=== PATIENT | female | born 1945 | race Caucasian/White ===

== ENCOUNTER → 2016-09-19 | Outpatient (REF) | payer MEDICARE, BC ==
[~2016-09-19] MED LIST: /LANS30GR; /WARF25TA; ACET65TA; ALBU17IN INH; ALBU17IN2 NEB; ALBUTEROL INHL INH; ANOR1AER INH; BEPR1.5D2 OU; CLAR1TAB2 PO; CLAR5CHW; COLA100C PO; ELES0.05 OU; LANS15CA PO; LASI20TA PO; LORA10TA2 PO; LYSI1000 PO; MAGN200T3 PO; MAGN500C PO; MAGN500T5 PO; PERC5TAB8; PREV15CA10 PO; SPIR1CAP INH; SYMB80INH INH; THERGRAN OR; TYLE325T5 PO; VITA-130 PO; VITA100066 PO; ZOCO5TAB; [UNRECOGNIZED DRUG - OTHER] PO
[2016-09-19 18:03] LABS: ALBUMIN 3.8 GM/DL (3.2-5.2); ALBUMIN/GLOBULIN RATIO 1.27 (1.00-1.93); ALKALINE PHOSPHATASE 88 U/L (45-117); ALT/SGPT 20 U/L (12-78); ANION GAP 5 MEQ/L (8-16); AST/SGOT 13 U/L (15-37); BILIRUBIN,TOTAL 0.2 MG/DL (0.2-1.0); BLOOD UREA NITROGEN 18 MG/DL (7-18); CALCIUM LEVEL 9.1 MG/DL (8.8-10.2); CARBON DIOXIDE LEVEL 32 MEQ/L (21-32); CHLORIDE LEVEL 103 MEQ/L (98-107); CREATININE FOR GFR 0.55 MG/DL (0.55-1.02); GLOMERULAR FILTRATION RATE > 60.0 (>39); GLUCOSE, FASTING 84 MG/DL (83-110); MAGNESIUM LEVEL 1.9 MG/DL (1.8-2.4); POTASSIUM SERUM 4.9 MEQ/L (3.5-5.1); SODIUM LEVEL 140 MEQ/L (136-145); TOTAL PROTEIN 6.8 GM/DL (6.4-8.2)
== END ==
LOC: M SFHCCLAY 13:42
PROVIDERS: ATTEND Nurse Practitioner
DX: M19.041 Primary osteoarthritis, right hand (principal); L85.3 Xerosis cutis; J44.0 Chronic obstructive pulmonary disease with (acute) lower respiratory infection; Z86.79 Personal history of other diseases of the circulatory system; K21.9 Gastro-esophageal reflux disease without esophagitis; E78.5 Hyperlipidemia, unspecified; E83.40 Disorders of magnesium metabolism, unspecified; M47.9 Spondylosis, unspecified; Z79.899 Other long term (current) drug therapy
CPT/HCPCS: 80053; 83036; 83735; 83880; G0463

== ENCOUNTER → 2017-03-12 | Outpatient (CLI) | payer MEDICARE, BC ==
[~2017-03-12] MED LIST changes: -COLA100C PO; +COLA100C5 PO; +VITA500T PO
--- NOTE | 2017-03-12 14:43 | REP ---
LOW-DOSE LUNG CANCER SCREENING CHEST CT WITHOUT CONTRAST: HISTORY: COPD. COMPARISON: Chest CT, August 01, 2015. CT FINDINGS: There is bilateral lower lobe and right middle lobe basilar fibrosis. The lungs are somewhat hyperinflated as before. These findings are unchanged. There is a small bulla in the right middle lobe and another in the right upper lobe. There is an additional small bulla in the right lower lobe posteriorly. These are unchanged as well. There is a 5 mm noncalcified nodular density in the right middle lobe on image number 73 of 106, series 106 of today's study. This is visible in retrospect on August 01, 2015 in series 5 of that prior study on page 132. It is unchanged. Accordingly, it is felt to be benign. No other significant pulmonary nodule is seen. IMPRESSION: Negative screening lung CT study. Hyperinflation, consistent with COPD. Signed by Jg Weldon MD 03/12/2017 03:58 P
== END ==
LOC: M RAD 13:09
PROVIDERS: ATTEND Internal Medicine Pulmonary Disease
DX: Z12.2 Encounter for screening for malignant neoplasm of respiratory organs (principal); F17.210 Nicotine dependence, cigarettes, uncomplicated; J44.9 Chronic obstructive pulmonary disease, unspecified

== ENCOUNTER → 2017-05-13 | Outpatient (REF) | payer MEDICARE, BC | LOC: M SFHCCAPE 11:39 | PROVIDERS: ATTEND Physician Assistant | DX: J02.9 Acute pharyngitis, unspecified (principal) ==

== ENCOUNTER → 2017-06-16 | Outpatient (REF) | payer MEDICARE, BC ==
[2017-06-16 17:24] LABS: BASO # 0.1 10^3/uL (0.0-0.2); BASO % 0.5 % (0.0-1.0); EOS # 0.1 10^3/uL (0.0-0.50); EOS % 1.5 % (0.0-3.0); IMMATURE GRANULOCYTE % 0.5 % (0-0); MEAN CORPUSCULAR HEMOGLOBIN 30.2 pg (27.0-33.0); MEAN CORPUSCULAR HGB CONC 32.1 g/dl (32.0-36.5); MEAN CORPUSCULAR VOLUME 93.9 fl (80.0-96.0); MONO # 0.7 10^3/uL (0.0-0.8); MONO % 7.5 % (0.0-5.0); NEUTROPHILS # 6.6 10^3/uL (1.8-7.7); PLATELET COUNT, AUTOMATED 415 10^3/uL (150-450); RED CELL DISTRIBUTION WIDTH 12.9 % (11.5-14.5); WHITE BLOOD COUNT 9.6 10^3/uL (4.0-10.0)
[2017-06-16 18:51] LABS: ALBUMIN 3.7 GM/DL (3.2-5.2); ALBUMIN/GLOBULIN RATIO 1.16 (1.00-1.93); ALKALINE PHOSPHATASE 99 U/L (45-117); ALT/SGPT 38 U/L (12-78); ANION GAP 5 MEQ/L (8-16); AST/SGOT 22 U/L (15-37); BILIRUBIN,TOTAL 0.2 MG/DL (0.2-1.0); BLOOD UREA NITROGEN 16 MG/DL (7-18); CALCIUM LEVEL 9.3 MG/DL (8.8-10.2); CARBON DIOXIDE LEVEL 32 MEQ/L (21-32); CHLORIDE LEVEL 102 MEQ/L (98-107); CREATININE FOR GFR 0.56 MG/DL (0.55-1.02); GLOMERULAR FILTRATION RATE > 60.0 (>39); GLUCOSE, FASTING 88 MG/DL (83-110); POTASSIUM SERUM 4.6 MEQ/L (3.5-5.1); SODIUM LEVEL 139 MEQ/L (136-145); TOTAL PROTEIN 6.9 GM/DL (6.4-8.2)
== END ==
LOC: M SFHCCLAY 13:30
PROVIDERS: ATTEND Family Medicine
DX: I50.30 Unspecified diastolic (congestive) heart failure (principal); R73.01 Impaired fasting glucose; E83.40 Disorders of magnesium metabolism, unspecified; Z13.21 Encounter for screening for nutritional disorder
CPT/HCPCS: 80053; 82652; 83036; 83735; 85025; G0463

== ENCOUNTER → 2017-09-24 | Outpatient (REF) | payer MEDICARE, BC ==
[2017-09-24 17:16] LABS: APPEARANCE, URINE MANUAL CLOUDY (CLEAR); BILIRUBIN, URINE MANUAL NEGATIVE (NEGATIVE); BLOOD URINE MANUAL POSITIVE (NEGATIVE); COLOR, URINE MANUAL YELLOW (YELLOW); GLUCOSE, URINE (UA) MANUAL NEGATIVE (NEGATIVE); KETONE, URINE MANUAL NEGATIVE (NEGATIVE); LEUKOCYTE ESTERASE, URINE MAN POSITIVE (NEGATIVE); MICROSCOPIC INDICATED? MAN YES (NO); NITRITE, URINE MANUAL POSITIVE (NEGATIVE); PROTEIN, URINE MANUAL TRACE mg/dL (NEGATIVE); SPECIFIC GRAVITY,URINE MANUAL 1.015 (1.002-1.035); UROBILINOGEN, URINE MANUAL NORMAL (NORMAL)
[2017-09-24 17:18] LABS: BACTERIA, URINE MOD AMOUNT; HYALINE CAST, URINE NONE SEEN /lpf (0-1); SQUAMOUS EPITHELIAL CELL URINE SMALL AMOUNT /hpf (SMALL AMT); WBC, URINE 30-40 /hpf (0-3)
[2017-09-24 17:19] LABS: MICROSCOPIC EXAM UNSPUN
== END ==
LOC: M SFHCCAPE 10:50
DX: R35.0 Frequency of micturition (principal); R31.0 Gross hematuria
CPT/HCPCS: 81000

== ENCOUNTER → 2018-01-22 | Outpatient (REF) | payer MEDICARE, BC ==
[2018-01-23 11:42] LABS: ALBUMIN 3.9 GM/DL (3.2-5.2); ALBUMIN/GLOBULIN RATIO 1.26 (1.00-1.93); ALKALINE PHOSPHATASE 83 U/L (45-117); ALT/SGPT 21 U/L (12-78); ANION GAP 5 MEQ/L (8-16); AST/SGOT 12 U/L (7-37); BILIRUBIN,TOTAL 0.2 MG/DL (0.2-1.0); BLOOD UREA NITROGEN 14 MG/DL (7-18); CALCIUM LEVEL 9.3 MG/DL (8.8-10.2); CARBON DIOXIDE LEVEL 32 MEQ/L (21-32); CHLORIDE LEVEL 104 MEQ/L (98-107); CREATININE FOR GFR 0.59 MG/DL (0.55-1.30); GLOMERULAR FILTRATION RATE > 60.0 (>39); GLUCOSE, FASTING 88 MG/DL (70-100); POTASSIUM SERUM 4.4 MEQ/L (3.5-5.1); SODIUM LEVEL 141 MEQ/L (136-145)
== END ==
LOC: M SFHCCLAY 13:27
DX: I50.30 Unspecified diastolic (congestive) heart failure (principal)
CPT/HCPCS: 80053

== ENCOUNTER → 2018-03-05 | Outpatient (CLI) | payer MEDICARE, BC | LOC: M PAIN 15:00 | DX: G89.29 Other chronic pain (principal); M46.96 Unspecified inflammatory spondylopathy, lumbar region; M47.816 Spondylosis without myelopathy or radiculopathy, lumbar region; I50.32 Chronic diastolic (congestive) heart failure; E78.5 Hyperlipidemia, unspecified; M19.90 Unspecified osteoarthritis, unspecified site; K21.9 Gastro-esophageal reflux disease without esophagitis; J44.9 Chronic obstructive pulmonary disease, unspecified; M51.36 Other intervertebral disc degeneration, lumbar region; I11.0 Hypertensive heart disease with heart failure; E66.9 Obesity, unspecified; M47.896 Other spondylosis, lumbar region; L85.3 Xerosis cutis; F17.210 Nicotine dependence, cigarettes, uncomplicated; Z79.891 Long term (current) use of opiate analgesic; Z79.899 Other long term (current) drug therapy; Z99.81 Dependence on supplemental oxygen; Z96.641 Presence of right artificial hip joint; Z85.828 Personal history of other malignant neoplasm of skin; Z88.2 Allergy status to sulfonamides; Z88.8 Allergy status to other drugs, medicaments and biological substances; Z91.040 Latex allergy status; Z68.29 Body mass index [BMI] 29.0-29.9, adult | CPT/HCPCS: G0463 ==

== ENCOUNTER → 2018-03-09 | Outpatient (REF) | payer MEDICARE, BC ==
[2018-03-10 16:30] LABS: APPEARANCE, URINE CLOUDY (CLEAR); BACTERIA, URINE AUTO 1+ (NEGATIVE); BILIRUBIN, URINE AUTO NEGATIVE (NEGATIVE); BLOOD, URINE BLOOD 3+ (NEGATIVE); COLOR, URINE AMBER (YELLOW); GLUCOSE, URINE (UA) AUTO NEGATIVE (NEGATIVE); KETONE, URINE AUTO TRACE mg/dL (NEGATIVE); LEUKOCYTE ESTERASE, URINE AUTO 2+ (NEGATIVE); MUCUS, URINE SMALL (NEGATIVE); NITRITE, URINE AUTO NEGATIVE (NEGATIVE); PROTEIN, URINE AUTO 1+ mg/dL (NEGATIVE); RBC, URINE AUTO TNTC /HPF (0-3); SQUAMOUS EPITHELIAL CELL UR AU 14 /HPF (0-6); UROBILINOGEN, URINE AUTO 0.2 mg/dL (0.0-2.0); WBC, URINE AUTO TNTC /HPF (0-3)
== END ==
LOC: M SFHCCAPE 15:08
DX: R31.0 Gross hematuria (principal); R30.0 Dysuria
CPT/HCPCS: 81001

== ENCOUNTER → 2018-03-13 | Outpatient (CLI) | payer MEDICARE, BC | LOC: M RAD 13:40 | DX: Z87.891 Personal history of nicotine dependence (principal) | CPT/HCPCS: G0297 ==

== ENCOUNTER → 2018-04-08 | Outpatient (CLI) | payer MEDICARE, BC | LOC: M PAIN 13:15 | DX: M46.96 Unspecified inflammatory spondylopathy, lumbar region (principal); M47.816 Spondylosis without myelopathy or radiculopathy, lumbar region; I50.30 Unspecified diastolic (congestive) heart failure; I11.0 Hypertensive heart disease with heart failure; E78.5 Hyperlipidemia, unspecified; J44.9 Chronic obstructive pulmonary disease, unspecified; K21.9 Gastro-esophageal reflux disease without esophagitis; M16.11 Unilateral primary osteoarthritis, right hip; F17.200 Nicotine dependence, unspecified, uncomplicated; Z79.899 Other long term (current) drug therapy; Z88.2 Allergy status to sulfonamides; Z88.8 Allergy status to other drugs, medicaments and biological substances; Z91.040 Latex allergy status | CPT/HCPCS: G0463 ==

== ENCOUNTER → 2018-04-21 | Outpatient (REF) | payer MEDICARE, BC ==
[2018-04-21 18:26] LABS: AMORPHOUS SEDIMENT SMALL (NEGATIVE); APPEARANCE, URINE CLOUDY (CLEAR); BACTERIA, URINE AUTO NEGATIVE (NEGATIVE); BILIRUBIN, URINE AUTO NEGATIVE (NEGATIVE); BLOOD, URINE BLOOD 3+ (NEGATIVE); COLOR, URINE YELLOW (YELLOW); GLUCOSE, URINE (UA) AUTO NEGATIVE (NEGATIVE); KETONE, URINE AUTO NEGATIVE (NEGATIVE); LEUKOCYTE ESTERASE, URINE AUTO 3+ (NEGATIVE); MUCUS, URINE SMALL (NEGATIVE); NITRITE, URINE AUTO NEGATIVE (NEGATIVE); PROTEIN, URINE AUTO NEGATIVE (NEGATIVE); RBC, URINE AUTO TNTC /HPF (0-3); SQUAMOUS EPITHELIAL CELL UR AU 3 /HPF (0-6); TRANSITIONAL EPITHELIAL AUTO 1 /HPF; UROBILINOGEN, URINE AUTO 0.2 mg/dL (0.0-2.0); WBC, URINE AUTO TNTC /HPF (0-3)
== END ==
LOC: M SFHCCAPE 11:43
DX: R30.0 Dysuria (principal)
CPT/HCPCS: 81001

== ENCOUNTER → 2018-04-29 | Outpatient (REF) | payer MEDICARE, BC ==
[2018-04-29 19:18] LABS: APPEARANCE, URINE CLEAR (CLEAR); BACTERIA, URINE AUTO NEGATIVE (NEGATIVE); BILIRUBIN, URINE AUTO NEGATIVE (NEGATIVE); BLOOD, URINE BLOOD NEGATIVE (NEGATIVE); COLOR, URINE STRAW (YELLOW); GLUCOSE, URINE (UA) AUTO NEGATIVE (NEGATIVE); KETONE, URINE AUTO NEGATIVE (NEGATIVE); LEUKOCYTE ESTERASE, URINE AUTO NEGATIVE (NEGATIVE); NITRITE, URINE AUTO NEGATIVE (NEGATIVE); PROTEIN, URINE AUTO NEGATIVE (NEGATIVE); RBC, URINE AUTO 0 /HPF (0-3); SQUAMOUS EPITHELIAL CELL UR AU 0 /HPF (0-6); UROBILINOGEN, URINE AUTO 0.2 mg/dL (0.0-2.0); WBC, URINE AUTO 0 /HPF (0-3)
== END ==
LOC: M LABSMT 10:08
DX: N39.0 Urinary tract infection, site not specified (principal)
CPT/HCPCS: 81001

== ENCOUNTER → 2018-05-19 | Outpatient (REF) | payer MEDICARE, BC ==
[2018-05-19 19:04] LABS: APPEARANCE, URINE CLEAR (CLEAR); BACTERIA, URINE AUTO 1+ (NEGATIVE); BILIRUBIN, URINE AUTO NEGATIVE (NEGATIVE); BLOOD, URINE BLOOD NEGATIVE (NEGATIVE); COLOR, URINE STRAW (YELLOW); GLUCOSE, URINE (UA) AUTO NEGATIVE (NEGATIVE); KETONE, URINE AUTO NEGATIVE (NEGATIVE); LEUKOCYTE ESTERASE, URINE AUTO NEGATIVE (NEGATIVE); NITRITE, URINE AUTO NEGATIVE (NEGATIVE); PROTEIN, URINE AUTO NEGATIVE (NEGATIVE); RBC, URINE AUTO 0 /HPF (0-3); SPECIFIC GRAVITY URINE AUTO 1.008 (1.002-1.035); SQUAMOUS EPITHELIAL CELL UR AU 0 /HPF (0-6); UROBILINOGEN, URINE AUTO 0.2 mg/dL (0.0-2.0); WBC, URINE AUTO 1 /HPF (0-3)
== END ==
LOC: M LABSMT 10:43
DX: N39.0 Urinary tract infection, site not specified (principal)
CPT/HCPCS: 81001

== ENCOUNTER → 2018-06-15 | Outpatient (REF) | payer MEDICARE, BC ==
[2018-06-15 17:21] LABS: BASO # 0.1 10^3/uL (0.0-0.2); BASO % 0.8 % (0.0-1.0); EOS # 0.1 10^3/uL (0.0-0.50); EOS % 1.3 % (0.0-3.0); HEMATOCRIT 37.1 % (36.0-47.0); HEMOGLOBIN 11.7 g/dl (12.0-15.5); IMMATURE GRANULOCYTE % 0.2 % (0-3.0); LYMPH % 22.1 % (24.0-44.0); MEAN CORPUSCULAR HEMOGLOBIN 30.2 pg (27.0-33.0); MEAN CORPUSCULAR HGB CONC 31.5 g/dl (32.0-36.5); MEAN CORPUSCULAR VOLUME 95.6 fl (80.0-96.0); MONO # 0.6 10^3/uL (0.0-0.8); MONO % 6.9 % (0.0-5.0); NEUTROPHILS # 6.4 10^3/uL (1.8-7.7); NEUTROPHILS % 68.7 % (36.0-66.0); PLATELET COUNT, AUTOMATED 395 10^3/uL (150-450); RED BLOOD COUNT 3.88 10^6/uL (4.00-5.40); RED CELL DISTRIBUTION WIDTH 12.6 % (11.5-14.5); WHITE BLOOD COUNT 9.2 10^3/uL (4.0-10.0)
[2018-06-15 17:25] LABS: ALBUMIN 3.8 GM/DL (3.2-5.2); ALBUMIN/GLOBULIN RATIO 1.19 (1.00-1.93); ALKALINE PHOSPHATASE 92 U/L (45-117); ALT/SGPT 22 U/L (12-78); ANION GAP 4 MEQ/L (8-16); AST/SGOT 16 U/L (7-37); BILIRUBIN,TOTAL 0.2 MG/DL (0.2-1.0); BLOOD UREA NITROGEN 22 MG/DL (7-18); CALCIUM LEVEL 9.3 MG/DL (8.8-10.2); CARBON DIOXIDE LEVEL 32 MEQ/L (21-32); CHLORIDE LEVEL 103 MEQ/L (98-107); CREATININE FOR GFR 0.59 MG/DL (0.55-1.30); GLOMERULAR FILTRATION RATE > 60.0 (>39); GLUCOSE, FASTING 88 MG/DL (70-100); POTASSIUM SERUM 4.5 MEQ/L (3.5-5.1); SODIUM LEVEL 139 MEQ/L (136-145)
[2018-06-15 17:50] LABS: ESTIMATED AVERAGE GLUCOSE 114 MG/DL (60-110); HEMOGLOBIN A1c 5.6 %
== END ==
LOC: M SFHCCLAY 13:29
DX: R35.0 Frequency of micturition (principal); I50.30 Unspecified diastolic (congestive) heart failure; R73.01 Impaired fasting glucose; Z23 Encounter for immunization
CPT/HCPCS: 83735

== ENCOUNTER → 2018-08-10 | Outpatient (REF) | payer MEDICARE, BC ==
[~2018-08-10] MED LIST changes: -LASI20TA PO; +LASI20TA3 PO
== END ==
LOC: M SFHCPLAZ 17:25
PROVIDERS: ATTEND Dermatology
DX: C44.529 Squamous cell carcinoma of skin of other part of trunk (principal)

== ENCOUNTER → 2018-09-15 | Outpatient (REF) | payer MEDICARE, BC | LOC: M SFHCPLAZ 09:40 | PROVIDERS: ATTEND Dermatology | DX: D23.39 Other benign neoplasm of skin of other parts of face (principal); L57.0 Actinic keratosis; L28.1 Prurigo nodularis ==

== ENCOUNTER → 2018-12-15 | Outpatient (REF) | payer MEDICARE, BC ==
[~2018-12-15] MED LIST changes: -/WARF25TA; +ALBU83IN INH; +CLAR10CA3 PO; +COUM1TAB18; +RA M500C PO; +VENTAER INH
[2018-12-15 17:30] LABS: HEMOGLOBIN A1c 5.9 %
[2018-12-15 17:41] LABS: ALBUMIN 3.6 GM/DL (3.2-5.2); ALT/SGPT 21 U/L (12-78); BILIRUBIN,TOTAL 0.3 MG/DL (0.2-1.0); BLOOD UREA NITROGEN 19 MG/DL (7-18); CALCIUM LEVEL 8.7 MG/DL (8.8-10.2); CARBON DIOXIDE LEVEL 30 MEQ/L (21-32); CHLORIDE LEVEL 103 MEQ/L (98-107); CHOLESTEROL LEVEL 223 MG/DL (<200); CHOLESTEROL RISK RATIO 4.955 (<5); CREATININE FOR GFR 0.57 MG/DL (0.55-1.30); GLOMERULAR FILTRATION RATE > 60.0 (>39); GLUCOSE, FASTING 76 MG/DL (70-100); HDL CHOLESTEROL 45 MG/DL (>40); LDL CHOLESTEROL 130 MG/DL (<100); NON-HDL-C 178 MG/DL; POTASSIUM SERUM 4.2 MEQ/L (3.5-5.1); SODIUM LEVEL 141 MEQ/L (136-145); TOTAL PROTEIN 7.1 GM/DL (6.4-8.2); TRIGLYCERIDES LEVEL 238 MG/DL (<150)
[2018-12-15 17:56] LABS: BASO # 0.1 10^3/uL (0.0-0.2); BASO % 0.6 % (0.0-1.0); EOS # 0.1 10^3/uL (0.0-0.50); EOS % 1.7 % (0.0-3.0); HEMATOCRIT 36.6 % (36.0-47.0); HEMOGLOBIN 11.5 g/dl (12.0-15.5); LYMPH # 2.2 10^3/uL (1.5-4.5); LYMPH % 26.8 % (24.0-44.0); MEAN CORPUSCULAR HEMOGLOBIN 30.7 pg (27.0-33.0); MEAN CORPUSCULAR HGB CONC 31.4 g/dl (32.0-36.5); MEAN CORPUSCULAR VOLUME 97.6 fl (80.0-96.0); MONO # 0.7 10^3/uL (0.0-0.8); NEUTROPHILS # 5.2 10^3/uL (1.8-7.7); NEUTROPHILS % 62.7 % (36.0-66.0); PLATELET COUNT, AUTOMATED 370 10^3/uL (150-450); RED BLOOD COUNT 3.75 10^6/uL (4.00-5.40); WHITE BLOOD COUNT 8.3 10^3/uL (4.0-10.0)
== END ==
LOC: M SFHCCLAY 13:18
PROVIDERS: ATTEND Family Medicine
DX: E78.5 Hyperlipidemia, unspecified (principal); R73.01 Impaired fasting glucose

== ENCOUNTER → 2018-12-15 | Outpatient (CLI) | payer MEDICARE, BC ==
--- NOTE | 2018-12-15 17:54 | REP ---
REASON: COPD. COMPARISON: Multiple, the latest is 08/09/2015 a portable exam. The lung perez are hyperexpanded. There is evidence of scattered fibrotic change with basilar predominance status quo. The pleural angles are status quo. The pleural angles are sharp. The cardiomediastinal silhouette is unchanged. The heart is mildly enlarged. No acute patchy parenchymal opacities or pleural effusions have developed. Chronic changes seen involving the spine status quo. IMPRESSION:Chronic changes as described above without evidence of acute cardiopulmonary disease.
== END ==
LOC: M CLY 13:28
PROVIDERS: ATTEND Family Medicine
DX: I50.9 Heart failure, unspecified (principal); J44.0 Chronic obstructive pulmonary disease with (acute) lower respiratory infection; E78.5 Hyperlipidemia, unspecified; R73.01 Impaired fasting glucose

== ENCOUNTER 2018-12-24 06:01 | Inpatient (IN) | payer MEDICARE, BC ==
[~2018-12-24] VITALS: Ht 167.6 cm; Wt 85.2 kg
[2018-12-24] VITALS (8 sets, daily range): BP systolic 116–144; BP diastolic 58–64
[~2018-12-24 06:01] MED LIST changes: +LR 1,000 ML IV ONE
[2018-12-24] MEDS ORDERED: fentaNYL 250 MCG/5 ML INJECTION (J3010) As Ordered ONE (07:18)
[2018-12-24] MEDS ORDERED: LIDOCAINE 2% INJ 100 MG/5 ML SDV (FOR ANES.) As Ordered ONE (07:18)
[2018-12-24] MEDS ORDERED: dexameTHASONE 4 MG/ML 1ML VIAL (J1100) As Ordered ONE (07:18)
[2018-12-24] MEDS ORDERED: PROPOFOL 200 MG/20 ML VIAL As Ordered ONE (07:18)
[2018-12-24] MEDS ORDERED: ROCURONIUM BROMIDE 50 MG/5 ML VIAL As Ordered ONE (07:18)
[2018-12-24] MEDS ORDERED: MIDAZOLAM INJ 2 MG/2 ML VIAL (J2250) As Ordered ONE (07:19)
[2018-12-24] MEDS ORDERED: CLINDAMYCIN 900 MG/50 ML PREMIX BAG As Ordered ONE (07:36)
[2018-12-24] MEDS ORDERED: CLINDAMYCIN 900 MG in APPROPRIATE DILUENT 1 EA IV ONE (08:00)
[2018-12-24] MEDS ORDERED: BACITRACIN PWD 50,000 UNITS VIAL As Ordered ONE (08:06)
[2018-12-24] MEDS ORDERED: PHENYLephrine HCL 500 MCG/5 ML (100MCG/ML) SYRINGE (J2370) As Ordered ONE (08:30)
[2018-12-24] MEDS ORDERED: ePHEDrine SULFATE 25 MG/5 ML(5MG/ML) SYRINGE As Ordered ONE (08:45)
[2018-12-24] MEDS ORDERED: ACETAMINOPHEN 1000MG 100ML IV BTL (OFIRMEV) (J0131 PER 10MG) As Ordered ONE (08:49)
[2018-12-24] MEDS ORDERED: ONDANSETRON 4MG/2ML VIAL (J2405) As Ordered ONE (09:12)
[2018-12-24] MEDS ORDERED: LIDOCAINE W/EPINEPHRINE 1% 20ML VIAL As Ordered ONE (09:15)
[2018-12-24] MEDS ORDERED: BUPIVACAINE HCL 0.5% 10 ML VIAL As Ordered ONE (09:15)
[2018-12-24] MEDS ORDERED: BACITRACIN OINT 30GM As Ordered ONE (09:31)
[2018-12-24] MEDS ORDERED: SUGAMMADEX SODIUM 500 MG/5 ML VIAL (BRIDION) As Ordered ONE (09:34)
--- NOTE | 2018-12-24 09:57 | POST-OPPD ---
Postoperative Procedure Note Date Of Procedure: December 24, 2018 PREOPERATIVE DIAGNOSIS: Perianal malignant lesions right and left POSTOPERATIVE DIAGNOSIS: same FINDINGS: malignant lesion perianal area right and left PROCEDURE: 1. Excision of perianal malignant lesions. 2. Repair of open wound s/p excision malignant lesions Right -complex closure, Left Rotational flap SURGEON: Jean Mcleod Dr Paley ANESTHESIA: General SPECIMENS: 1 right perianal lesion (FS) Suture at 12 o'clock, 2 Left perianal lesion (FS) suture at 12 O'clock ESTIMATED BLOOD LOSS: 10cc REPLACED: none DRAINS: none COMPLICATIONS: none POSTOPERATIVE CONDITION: stable IRVING FRIEDMAN DO December 24, 2018 09:57
[2018-12-24] MEDS ORDERED: oxyCODONE 5MG TAB PO PRN (10:45)
[2018-12-24] MEDS ORDERED: fentaNYL 100 MCG/2 ML INJECTION (J3010) IV PRN (10:45)
[2018-12-24] MEDS ORDERED: HYDROMORPHONE HCL 0.5 MG/ 0.5 ML SYRINGE (J1170 PER 1) IV PRN (10:45)
[2018-12-24] MEDS ORDERED: PERCOCET 5MG/325MG TAB PO PRN (10:45)
[2018-12-24] MEDS ORDERED: ALBUTEROL 90 MCG/ACT 8GM HFA INHALER INH PRN (11:30)
[2018-12-24] MEDS: VITAMIN D 1,000 INTERNATIONAL UNITS TABLET PO SCH (12:53)
[2018-12-24] MEDS: ASCORBIC ACID 500 MG TAB PO SCH (12:54)
[2018-12-24] MEDS: FUROSEMIDE 20 MG TAB PO SCH (12:54)
--- NOTE | 2018-12-24 13:49 | HPE ---
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 She was found to have recurrence and was seeing Dr. Akhtar of plastic surgery. The patient did have a wide excision and squamous cell carcinoma peroneal resection today completed electively with Dr. Akhtar and Dr. Gonzalez. She is seen and examined in the postanesthesia care unit for postoperative admission. At the present time the patient tells me that she feels a little groggy but otherwise she is awake, alert, and oriented and has no complaints. She denies any fevers, chills, chest pressure or shortness of breath. PAST MEDICAL HISTORY: 1. Chronic obstructive pulmonary disease (COPD) with baseline 2 liters continuous oxygen followed by Dr. Gamble. 2. Gastroesophageal reflux disease (GERD). 3. Osteoarthritis. 4. Diastolic congestive heart failure. 5. Chronic hypoxic respiratory failure. 6. Degenerative disc disease. 7. Obesity. 8. Environmental allergies. HOME MEDICATIONS: - Bepreve 1.5% drops both eyes twice a day - lansoprazole 50 mg daily - lysine 1 gram daily - magnesium oxide 500 mg daily - albuterol 2.5 mg nebulizer three times a day - Ventolin HFA 18 gram inhaled 2 puffs as needed shortness of breath - vitamin C 500 mg daily - Symbicort 80/4.5 two puffs inhaled twice a day - vitamin D3 1000 units daily - furosemide 20 mg daily - loratadine 10 mg daily - Spiriva 18 mcg inhaled daily PAST SURGICAL HISTORY: 1. Perianal squamous cell carcinoma resection and radiation in 1995. 2. Tonsillectomy in 1948. 3. Left knee surgery in 2003. 4. Laparoscopic hysterectomy in 2004. 5. Hand surgery in 2006. 6. Right hip surgery in 2008. FAMILY HISTORY: Family history is noncontributory. REVIEW OF SYSTEMS: A 10-point review of systems is completely negative other than history of present illness. SOCIAL HISTORY: She lives alone. She is an active smoker for greater than 50 pack years. She denies any alcohol or illicit drug use. ALLERGIES: CEFUROXIME, LATEX, LEVOFLOXACIN, FLUDROCORTISONE, LIDOCAINE, SULFASALAZINE, NONSTEROIDAL ANTI-INFLAMMATORY DRUGS (NSAIDS), BENADRYL, MUCINEX, PREDNISONE, SULFA DRUGS, FORMALDEHYDE. OBJECTIVE: Vital signs temperature afebrile, heart rate 76, oxygen saturation 95% on 2 liters, blood pressure 131/59. GENERAL: She is an obese, elderly female lying in bed. She does not appear to be in any acute distress. She is resting comfortably. HEENT: Cranial nerves II-XII grossly intact. She has moist mucous membranes. No elevation of jugular venous pulse (JVP). CARDIOVASCULAR: S1, S2 regular. RESPIRATORY: Quite clear. ABDOMEN: Obese. Bowel sounds present. The abdomen is soft. She has a Starr catheter in place. EXTREMITIES: No clubbing, cyanosis, or edema. Her wound is not examined. No recent laboratory studies or imaging. ASSESSMENT AND PLAN: This is a 72-year-old female postoperative 0 for perianal squamous cell carcinoma wide excision. PROBLEMS: 1. Perianal wide excision of squamous cell carcinoma postoperative day 0. Management as per Dr. Akhtar of plastic surgery, pain control. I did discuss her case with her. She is okay if the patient undergoing physical therapy; however, the patient under no circumstances should be sitting. Starr catheter, wound care as per Dr. Akhtar. The patient appears to have tolerated her procedure quite well. We will start the patient on Lovenox for deep vein thrombosis (DVT) prophylaxis. 2. Chronic hypoxic respiratory failure and chronic obstructive pulmonary disease (COPD). Tobacco cessation counseling provided. Continue with albuterol as needed and Spiriva. She is at her baseline respiratory status. 3. Gastroesophageal reflux disease (GERD). She will be provided with pantoprazole as a replacement for her lansoprazole while hospitalized. 4. Diastolic congestive heart failure. She is well compensated and euvolemic. She is to continue with her Lasix. She did receive some perioperative fluid. We will monitor her volume status closely. 5. Seasonal allergies. Continue with Claritin. 6. Vitamin C deficiency. Continue with supplementation. 7. Vitamin D deficiency. Continue with supplementation. DISPOSITION: The patient is admitted to the medical surgical floor. She will likely benefit from physical therapy. We will monitor her clinical progress. I suspect she may be able to go home some time over this weekend. Consult placed to Dr. Akhtar of plastic surgery.
[2018-12-24] MEDS: SYMBICORT 80/4.5MCG INHALER 6GM INH SCH ×2 (15:50→20:26)
[2018-12-24] MEDS: TIOTROPIUM INHALER/CAPSULE (SPIRIVA) INH SCH (15:59)
[2018-12-24] MEDS: ALBUTEROL SULFATE 2.5 MG/0.5 ML INH NEB SOLN INH SCH ×2 (15:59→20:00)
--- NOTE | 2018-12-24 19:19 | RO ---
DATE OF PROCEDURE: 12/24/2018 PREPROCEDURE DIAGNOSIS: Open wound perianal area, right and left. POSTPROCEDURE DIAGNOSIS: Open wound perianal area, right and left. FINDINGS: Status post malignant lesion excision in the perianal area, right and left side of the wound. PROCEDURE: Combination procedure: The first portion of the procedure is excision of the known malignant lesions will be dictated by general surgeon. Our part of procedure is repair of open wound, status post excision malignant lesion on the right with complex closure and on the left with a rotational flap. SURGEON: Starla Akhtar DO LIBRARY CIRCULATION DEPARTMENT CHIEF: ANESTHESIA: General. SPECIMENS: From the general surgery part, from the excision part, the two specimens were sent, right perianal lesion, frozen section, suture at 12 o'clock and a left perianal lesion, frozen section, suture at 12 o'clock. BLOOD LOSS: 10 mL. No replacement needed. No drains. COMPLICATIONS: None. This is a 72-year-old female who was seen in our office as a consultation for combination procedure for closure of a perianal defect. Patient has biopsy-proven squamous cell carcinoma lesions on her perianal area. The patient had anal cancer previously about 20 years ago with radiation to the area, now she has squamous cell on the skin. She is getting scheduled to have full excision with planned large deficit on perianal area, so was then consulted for closure. The complex closure were local advancement flaps for closure of the defect. All the risks and benefits and alternatives discussed with the patient at length the day of surgery. Again, the patient was reexamined, and the plan remains the same. All risks and benefits and alternatives again discussed with the patient. She is ready to proceed. DESCRIPTION OF PROCEDURE: She was brought into the operating room, placed in supine position. Preoperative antibiotics given, clindamycin and sequential stockings placed on the lower calves. General anesthesia was induced, and then she was placed in the prone position. She was prepped and draped in the usual sterile fashion. The first portion of the procedure was performed by general surgery by excision of the lesion. The right one is 1 x 1-1/2 cm in diameter with 4 mm margins, full excision, suture at 12 o'clock and that will be dictated separately. The left lesion was 2 x 3 cm with 6 mm margins, so the deficit was 4 x 3 cm in diameter. After the pathology returned of the negative margins, we reexamined the wound. We started our closure on the right side. The edges were undermined, and then the complex closure was done in layers. Subcuticular tissue was approximated with interrupted #3-0 Vicryl sutures and then vertical mattress closure was done with #4-0 chromic sutures on the right side. Total incision is 4 cm in length. Then, we turned our attention to the left side, quite a large opening and it is adjacent to the verge of anal skin with designed rotation flap, which was encompassing nonradiated skin from the inferior portion of her buttock, and it was elevated using a knife and electrocautery. It has a good blood supply and then it was turned superiorly into the defect bringing the good healthy tissue into the wound bed. The flap was set in with interrupted #3-0 Vicryl sutures, as well as #2-0 Vicryl sutures and interrupted vertical mattress with #4-0 chromic dermal sutures. Local was given to the patient into the wound, 0.50% Marcaine was mixed half and half with 1% lidocaine with epinephrine, a total of 7 mL. And also, the incision was reexamined. There was completely no tension on the flap. Bacitracin ointment and a Xeroform, and bulky dressing was applied. The patient preoperatively had a Starr placed as well, so Starr remains in. Patient was then turned in supine position, extubated in the operating room without any difficulties, transferred to recovery room in stable condition.
[2018-12-24] MEDS ORDERED: ACETAMINOPHEN 500 MG TAB PO ONE (21:00)
[2018-12-24] MEDS ORDERED: ENOXAPARIN 40 MG/0.4 ML SYRINGE (J1650) SC SCH (21:00)
[2018-12-24] MEDS: ACETAMINOPHEN TAB 650MG DOSE (2X325MG) PO ONE (21:30)
[2018-12-25 00:30] VITALS: BP 115/55
[2018-12-25 04:30] VITALS: BP 117/58
[2018-12-25 06:04] LABS: HEMATOCRIT 33.3 % (36.0-47.0); HEMOGLOBIN 10.7 g/dl (12.0-15.5); MEAN CORPUSCULAR HEMOGLOBIN 30.7 pg (27.0-33.0); MEAN CORPUSCULAR HGB CONC 32.1 g/dl (32.0-36.5); MEAN CORPUSCULAR VOLUME 95.7 fl (80.0-96.0); PLATELET COUNT, AUTOMATED 299 10^3/uL (150-450); RED BLOOD COUNT 3.48 10^6/uL (4.00-5.40); WHITE BLOOD COUNT 8.2 10^3/uL (4.0-10.0)
[2018-12-25 06:18] LABS: BLOOD UREA NITROGEN 17 MG/DL (7-18); CALCIUM LEVEL 8.7 MG/DL (8.8-10.2); CARBON DIOXIDE LEVEL 32 MEQ/L (21-32); CHLORIDE LEVEL 107 MEQ/L (98-107); CREATININE FOR GFR 0.52 MG/DL (0.55-1.30); GLOMERULAR FILTRATION RATE > 60.0 (>39); GLUCOSE, FASTING 87 MG/DL (70-100); POTASSIUM SERUM 3.8 MEQ/L (3.5-5.1); SODIUM LEVEL 142 MEQ/L (136-145)
[2018-12-25] MEDS: SYMBICORT 80/4.5MCG INHALER 6GM INH SCH (07:33)
[2018-12-25] MEDS: TIOTROPIUM INHALER/CAPSULE (SPIRIVA) INH SCH (07:33)
[2018-12-25] MEDS: ALBUTEROL SULFATE 2.5 MG/0.5 ML INH NEB SOLN INH SCH ×4 (07:33→14:39)
[2018-12-25] MEDS ORDERED: LORATADINE 10 MG TAB PO SCH (09:00)
[2018-12-25] MEDS ORDERED: FLUBLOK(EGG FREE)(QUAD)INFLUENZA VACC 0.5ML SYRINGE (90682)18YRS&OLDER IM ONE (09:00)
[2018-12-25] MEDS ORDERED: PANTOPRAZOLE 20 MG TAB PO SCH (09:00)
--- NOTE | 2018-12-25 09:19 | RO ---
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 PROCEDURE PERFORMED: Excision of two foci of squamous cell carcinoma of the perianal area. Specimen one was from the patients left side and was a 2.0 cm excision and specimen two is a 3.5 cm excision from the left perianal area. SURGEON: Dr. Santino Gonzalez. MAC DEVELOPER: Dr. Starla Akhtar. ANESTHESIA: General. INDICATIONS FOR PROCEDURE: The patient is a 72-year-old woman who had undergone excision and radiation therapy for a perianal squamous cell carcinoma from 20 years ago. In June or July, she was seen by dermatology and noted to have two foci of carcinoma on the left and right sides of the perianal area. She underwent shave biopsies of both sides which showed squamous cell carcinoma and I saw her somewhat later when she had two open areas about 2 to 2-1/2 cm in diameter of the perineum. Plan now is for excision of these areas with closure by Dr. Akhtar. OPERATIVE PROCEDURE: The patient was placed under general anesthesia and rolled into a prone position on the operating table. Her pressure points were padded. The perineum was prepped and draped in a sterile fashion. A Starr catheter had been inserted. Inspection on the right side of the perianal area showed that her previously noted open wound had epithelialized. There remained a slightly depressed appearing somewhat indurated pale scar approximately 1.0 cm in diameter. The edges of this were not distinct. A radially oriented relative to the anus elliptical excision was outlined taking 5 mm margins on all sides thus generating a 2.0 cm excision. The incision was performed with a scalpel and hemostasis was ensured with the cautery. The specimen was marked at the 12 o'clock position with a suture in sent for frozen section. On the left side of the perianal area was a somewhat more oval shaped 2.5 cm maximally open raised tumor mass. The margins were more distinct in this area. Again an excision was outlined with at least 5 mm margins on all sides thus yielding a 3.5 cm excision. Again this excision was performed with a scalpel, taking the full thickness of the skin and the underlying subcutaneous fat. Hemostasis was achieved with the cautery. The specimen was marked at 12 o'clock position and also sent for frozen section. Dr. Eason contacted the operating room by phone first to advise that the margins on the right side were clear. Subsequent phone call revealed that the margins of the left excision were also clear. I then left Dr. Akhtar to proceed with the closure of her wounds. The surgical closure of her wounds will be addressed in a separate dictation.
[2018-12-25] MEDS: VITAMIN D 1,000 INTERNATIONAL UNITS TABLET PO SCH (10:05)
[2018-12-25] MEDS: FUROSEMIDE 20 MG TAB PO SCH (10:06)
[2018-12-25] MEDS: ASCORBIC ACID 500 MG TAB PO SCH (10:06)
--- NOTE | 2018-12-25 12:16 | IPNPDOC ---
Subjective General Date/Time Seen The patient was seen on 12/25/18 at 12:10. Subject Chief Complaint/History The patient is a 72-year-old female admitted with a reason for visit of Squamous Cell Carcinoma Perineum. Patient s/p excision malignant lesions with flap closure POD 1. Doing well. Ambulating, voided. Tolerating diet. Pain controlled. Patient is wishing to go home. Denies abdominal pain, SOB, CP, dizziness. Current Medications Current Medications Current Medications Albuterol Sulfate (Proventil Neb) 2.5 mg RTID INH Last administered on 12/25/18at 11:25; Start 12/24/18 at 14:00 Albuterol Sulfate (Proventil, Ventolin Hfa) 2 puff Q6HP PRN INH SOB/WHEEZING; Start 12/24/18 at 11:30 Ascorbic Acid (Vitamin C) 500 mg DAILY PO Last administered on 12/25/18at 10:06; Start 12/24/18 at 09:00 Budesonide/ Formoterol Fumarate (Symbicort 80/ 4.5mcg) 2 puff BID INH Last administered on 12/25/18at 07:33; Start 12/24/18 at 09:00 Enoxaparin Sodium (Lovenox) 40 mg QHS SC Last administered on 12/24/18at 21:15; Start 12/24/18 at 21:00 Fentanyl Citrate (Sublimaze) 25 mcg Q5MP PRN IV MODERATE PAIN (PS 4-7); Start 12/24/18 at 10:45; Stop 12/24/18 at 11:45; Status DC Furosemide (Lasix) 20 mg DAILY PO Last administered on 12/25/18at 10:06; Start 12/24/18 at 09:00 Hydromorphone HCl (Dilaudid) 0.5 mg Q15M PRN IV MODERATE/SEVERE PAIN (PS 5-10); Start 12/24/18 at 10:45; Stop 12/24/18 at 11:45; Status DC Loratadine (Claritin) 10 mg DAILY PO Last administered on 12/25/18at 10:06; Start 12/25/18 at 09:00 Oxycodone HCl (Roxicodone, Oxyir) 5 mg ASDIRECTED PRN PO MILD/MODERATE PAIN (PS 1-7); Start 12/24/18 at 10:45; Stop 12/24/18 at 11:45; Status DC Oxycodone/ Acetaminophen (Percocet 5mg/ 325mg Tablet) 1 tab Q4H PRN PO PAIN; Start 12/24/18 at 10:45 Pantoprazole Sodium (Protonix) 20 mg DAILY PO Last administered on 12/25/18at 10:05; Start 12/25/18 at 09:00 Tiotropium [place] (Spiriva Handihaler) 1 inhalation DAILY INH Last administered on 12/25/18at 07:33; Start 12/24/18 at 09:00 Vitamin D (Vitamin D) 1,000 units DAILY PO Last administered on 12/25/18at 10:05; Start 12/24/18 at 09:00 Allergies Coded Allergies: cefuroxime (Verified Allergy, Intermediate, rash and swell, 12/24/18) latex (Verified Allergy, Intermediate, rash, 12/24/18) from bra elastic levofloxacin (Verified Allergy, Intermediate, rash, 12/24/18) fludrocortisone (Verified Allergy, Unknown, 12/24/18) lidocaine (Verified Allergy, Unknown, 12/24/18) sulfasalazine (Verified Allergy, Unknown, 12/24/18) NSAIDS (Non-Steroidal Anti-Inflamma (Verified Adverse Reaction, Intermediate, bruises, 12/24/18) diphenhydramine (Verified Adverse Reaction, Intermediate, reserve reaction, 12/24/18) guaifenesin (Verified Adverse Reaction, Intermediate, HYPERVENTILATION, 12/24/18) prednisone (Verified Adverse Reaction, Intermediate, "makes me crazy", 12/24/18) Sulfa (Sulfonamide Antibiotics) (Verified Adverse Reaction, Mild, headache, 12/24/18) formaldehyde (Verified Adverse Reaction, Mild, vomiting, 12/24/18) Objective Physical Examination Examination GENERAL APPEARANCE:Patient seen, laying in bed, awake, alert, and oriented. Comfortable, in no acute distress. SKIN: Warm and moist. Perianal incision intact. No bleeding, minimal swelling. HEENT: Normocephalic, atraumatic. [place] palpebral conjunctiva, anicteric sclerae. Lips and mucosa appear moist. NECK: Supple, no thyromegaly. No obvious jugular venous distention. LUNGS: Clear to auscultation bilaterally. No wheezing appreciated. HEART: No chest wall abnormalities. Regular rate and rhythm with no murmurs appreciated. ABDOMEN: Abdomen is soft NT/ND. Vital Signs Vital Signs Date Time Temp Pulse Resp B/P (MAP) Pulse Ox O2 Delivery O2 Flow Rate FiO2 12/25/18 04:30 97.1 78 18 117/58 (77) 96 2.0 12/24/18 16:02 Nasal Cannula I&Os I&O- Last 24 Hours up to 6 AM 12/25/18 06:00 Intake Total 1570 ml Output Total 3550 ml Balance -1980 ml Laboratory Data Labs 24H Laboratory Tests 2 12/25/18 05:22: Nucleated Red Blood Cells % (auto) 0.0, Anion Gap 3L, Glomerular Filtration Rate > 60.0, Blood Urea Nitrogen 17, Creatinine 0.52L, Sodium Level 142, Potassium Level 3.8, Chloride Level 107, Carbon Dioxide Level 32, Calcium Level 8.7L CBC/BMP Laboratory Tests 12/25/18 05:22 Red Blood Count 3.48 L, Mean Corpuscular Volume 95.7, Mean Corpuscular Hemoglobin 30.7, Mean Corpuscular Hemoglobin Concent 32.1, Red Cell Distribution Width 12.6, Calcium Level 8.7 L A-FIB/CHADSVASC A-FIB History Current/History of A-Fib/PAF?: No Current Oral Anticoagulant The: No Impression S/p excision malignant lesions perianal area with flap closure. Stable for discharge. Discharge instructions reviewed with patient. After BM wash area with baby wipes. Apply single layer Xeroform with Bacitracin one packet, dry gauze and mesh panties. She may shower. Pain control No sitting Walking or side to side reclining is permitted. Minimize pressure on the surgical site. High fiber diet. F/up with plastic surgery next week. Plan / VTE VTE Prophylaxis Ordered?: Yes Plan / Urinary Catheter Urinary Catheter: D/C IRVING Gomez DO December 25, 2018 12:16
[2018-12-25] MEDS ORDERED: OXYC1TAB23 PO (13:25)
[2018-12-25 14:00] VITALS: BP 115/55
--- NOTE | 2018-12-25 18:11 | DSES ---
DATE OF ADMISSION: 12/24/2018 DATE OF DISCHARGE: 12/25/2018 DISCHARGE DIAGNOSIS: Squamous cell carcinoma of the perianal area. SECONDARY DIAGNOSES: 1. Chronic obstructive pulmonary disease (COPD). 2. Diastolic congestive heart failure (CHF). 3. Gastroesophageal reflux disease (GERD). 4. Environmental allergies. 5. Hypomagnesemia. HOSPITAL COURSE: The patient is a 74-year-old female who was admitted on 12/24/2018 for an elective surgical excision of malignant squamous cell carcinoma of the perianal area with flap closure completed by Dr. Akhtar of plastic surgery and assisted by Dr. Gonzalez of general surgery. The patient tolerated the procedure well. She was monitored closely in the postoperative period. She did quite well. Her pain was very easily controlled. SUBJECTIVE: This morning, the patient tells me that she feels great. She would like to go home. OBJECTIVE: VITAL SIGNS: Temperature 97.1, pulse 78, respiratory rate 18, blood pressure 117/58, oxygen saturation 96% on 2 liters. GENERAL: She is a pleasant, elderly, female lying on her left side. No acute distress. HEENT: Cranial nerves II-XII are grossly intact. She has moist mucous membranes. Wearing nasal cannula. CARDIOVASCULAR EXAM: S1, S2 regular. RESPIRATORY EXAM: Actually quite clear. ABDOMINAL EXAM: Obese. Bowel sounds present. The abdomen is soft. EXTREMITIES: No clubbing, cyanosis or edema. RECTAL: The wound was not evaluated as per plastic surgery. LABORATORY STUDIES: WBC 8.2, hemoglobin 10.7, platelet count 299. Chemistry panel: Sodium 142, potassium 3.8, chloride 107, bicarbonate 32, BUN 17, creatinine 0.5. No microbiology or imaging. ASSESSMENT AND PLAN: This is a 72-year-old female postoperative day #1 for perianal wide excision of a squamous cell carcinoma with flap closure. 1. Squamous cell carcinoma, status post surgical excision. Dr. Akhtar's help is greatly appreciated. She tolerated the procedure well. Her pain is well controlled. She is stable for discharge home. Starr catheter is discontinued. She is voiding. Her pain is well controlled. She will followup with Dr. Akhtar in 1 week. Followup with primary care provider in 1 week. She is to have no sitting. She is okay to shower. After her bowel movement, she has been advised to wash the area with baby wipes. Walking or side to side reclining is permitted. She is to minimize pressure on her surgical site. She is to call the plastic surgery office if her symptoms worsen. Her diet is as prior to admission. 2. Chronic hypoxic respiratory failure, stable. She did receive tobacco cessation counseling during this stay. She is to continue on her home medications. 3. Gastroesophageal reflux disease (GERD), stable. She was on a proton pump inhibitor while in the hospital. 4. Diastolic congestive heart failure (CHF), stable and chronic. She was euvolemic. She was continued on her home Lasix while hospitalized. 5. Seasonal allergies. She is to continue on her Claritin. DISPOSITION: She is being discharged home with self care. She is cleared by physical therapy (PT). MEDICATIONS: At the time of discharge: - Percocet 5/325 one tablet three times a day as needed for pain for 3 days, nine tablets, not to have more than three tablets per day Otherwise, medications from admission are unchanged. 45 minutes was spent organizing safe disposition and answering all questions to the patient's satisfaction and coordinate care.
== END 2018-12-25 16:28 | disposition home or self-care (01) | DRG 571 ==
LOC: M OR 06:01 → EDSTATUS 07:30 → M MSPAV 11:36
PROVIDERS: ADMIT Surgery; ATTEND Internal Medicine
PROC: 0JBB0ZZ Excision of Perineum Subcutaneous Tissue and Fascia, Open Approach (ICD-10-PCS; principal; 2018-12-24 07:30)
PROC: 0JU Subcutaneous Tissue and Fascia, Supplement (ICD-10-PCS; 2018-12-24 07:30)
DX: C44.520 Squamous cell carcinoma of anal skin (principal); I50.32 Chronic diastolic (congestive) heart failure; J96.11 Chronic respiratory failure with hypoxia; J44.9 Chronic obstructive pulmonary disease, unspecified; K21.9 Gastro-esophageal reflux disease without esophagitis; M19.90 Unspecified osteoarthritis, unspecified site; E66.9 Obesity, unspecified; F17.200 Nicotine dependence, unspecified, uncomplicated; E55.9 Vitamin D deficiency, unspecified; E54 Ascorbic acid deficiency; J30.2 Other seasonal allergic rhinitis; Z79.899 Other long term (current) drug therapy; Z92.3 Personal history of irradiation; Z88.1 Allergy status to other antibiotic agents; Z88.2 Allergy status to sulfonamides; Z88.8 Allergy status to other drugs, medicaments and biological substances; Z68.30 Body mass index [BMI] 30.0-30.9, adult

== ENCOUNTER → 2019-04-01 | Outpatient (CLI) | payer MEDICARE, BC ==
[~2019-04-01] MED LIST changes: -LR 1,000 ML IV ONE; +OXYC1TAB23 PO
--- NOTE | 2019-04-01 14:44 | REP ---
REASON FOR EXAM: Tobacco abuse. COMPARISON: Multiple, all reviewed, latest 03/13/2018. As per the protocol, only lung window images were sent to the read station for interpretation. The lungs are hyper-expanded, status quo. Bibasilar asymmetric densities are present status quo. There is cylindrical bronchiectasis status quo. There are no new abnormal nodules, masses, or opacities. IMPRESSION: Stable lung screening CT of the chest with findings as described above. There are no new abnormalities. There is a 5 mm sized nodule in the right middle lobe, which has been stable for years. According to the revised Fleischner Society criteria, yearly lung screening is recommended. Electronically Signed by Neri Fry DO 04/01/2019 05:00 P
== END ==
LOC: M RAD 12:49
PROVIDERS: ATTEND Internal Medicine Pulmonary Disease
DX: Z87.891 Personal history of nicotine dependence (principal); R91.1 Solitary pulmonary nodule

== ENCOUNTER → 2019-06-24 | Outpatient (REF) | payer MEDICARE, BC ==
[2019-06-24 17:09] LABS: ALBUMIN 3.9 GM/DL (3.2-5.2); ALT/SGPT 21 U/L (12-78); BILIRUBIN,TOTAL 0.2 MG/DL (0.2-1.0); BLOOD UREA NITROGEN 18 MG/DL (7-18); CALCIUM LEVEL 9.7 MG/DL (8.8-10.2); CARBON DIOXIDE LEVEL 31 MEQ/L (21-32); CHLORIDE LEVEL 104 MEQ/L (98-107); CREATININE FOR GFR 0.64 MG/DL (0.55-1.30); GLOMERULAR FILTRATION RATE > 60.0 (>39); GLUCOSE, FASTING 77 MG/DL (70-100); POTASSIUM SERUM 4.6 MEQ/L (3.5-5.1); SODIUM LEVEL 140 MEQ/L (136-145); TOTAL PROTEIN 7.1 GM/DL (6.4-8.2)
[2019-06-24 17:46] LABS: HEMOGLOBIN A1c 5.4 %
== END ==
LOC: M SFHCCLAY 13:26
PROVIDERS: ATTEND Family Medicine
DX: E78.5 Hyperlipidemia, unspecified (principal); R73.01 Impaired fasting glucose; I50.30 Unspecified diastolic (congestive) heart failure

== ENCOUNTER → 2019-10-28 | Outpatient (REF) | payer MEDICARE, BC | LOC: M LAB REF 17:21 | PROVIDERS: ATTEND Dermatology | DX: D48.9 Neoplasm of uncertain behavior, unspecified (principal) | CPT/HCPCS: 87255; G0463 ==

== ENCOUNTER → 2020-04-03 | Outpatient (CLI) | payer MEDICARE, BC ==
[~2020-04-03] MED LIST changes: +VITA-243 PO; -VITA500T PO
--- NOTE | 2020-05-16 09:44 | REP ---
CT CHEST WITHOUT CONTRAST: LOW-DOSE SCREENING EXAM HISTORY: Personal history of nicotine dependence. COMPARISON: Made with prior studies, the most recent of which is from 04/01/2019. The most remote comparison chest CT study is from 08/08/2015. CT FINDINGS: A stable 5-mm noncalcified right middle lobe nodule is again seen on page 70 of 99 and todays study unchanged from multiple prior studies. There is a curvilinear somewhat nodular opacity in the left lower lobe, which is unchanged from the 03/13/2018 study. This may be focal parenchymal scarring. It does not appear to be progressive. There are scattered fibrotic changes in the lingula and right middle lobe as before. Emphysematous changes are again noted. IMPRESSION: Lung-RADS category 2 findings. Repeat screening study suggested in one year. MTDD
== END ==
LOC: M RAD 13:00
PROVIDERS: ATTEND Internal Medicine Pulmonary Disease
DX: Z12.2 Encounter for screening for malignant neoplasm of respiratory organs (principal); F17.218 Nicotine dependence, cigarettes, with other nicotine-induced disorders

== ENCOUNTER → 2020-06-08 | Outpatient (REF) | payer MEDICARE, BC ==
[2020-06-08 16:50] LABS: ALBUMIN 3.8 GM/DL (3.2-5.2); ALT/SGPT 26 U/L (12-78); BILIRUBIN,TOTAL 0.2 MG/DL (0.2-1.0); BLOOD UREA NITROGEN 15 MG/DL (7-18); CALCIUM LEVEL 9.9 MG/DL (8.8-10.2); CARBON DIOXIDE LEVEL 34 MEQ/L (21-32); CHLORIDE LEVEL 101 MEQ/L (98-107); CHOLESTEROL LEVEL 246 MG/DL (<200); CHOLESTEROL RISK RATIO 4.823 (<5); CREATININE FOR GFR 0.62 MG/DL (0.55-1.30); GLOMERULAR FILTRATION RATE > 60.0 (>39); GLUCOSE, FASTING 93 MG/DL (70-100); HDL CHOLESTEROL 51 MG/DL (>40); LDL CHOLESTEROL 155 MG/DL (<100); NON-HDL-C 195 MG/DL; POTASSIUM SERUM 4.7 MEQ/L (3.5-5.1); SODIUM LEVEL 137 MEQ/L (136-145); TRIGLYCERIDES LEVEL 200 MG/DL (<150)
[2020-06-08 17:14] LABS: HEMOGLOBIN A1c 5.6 %
== END ==
LOC: M SFHCCLAY 13:17
PROVIDERS: ATTEND Family Medicine
DX: R73.01 Impaired fasting glucose (principal); E78.5 Hyperlipidemia, unspecified; Z23 Encounter for immunization
CPT/HCPCS: 80053; 80061; 83036; 90682; G0008; G0463

== ENCOUNTER → 2020-09-28 | Outpatient (REF) | payer MEDICARE, BC | LOC: M SFHCCLAY 13:38 | PROVIDERS: ATTEND Physician Assistant | DX: R82.90 Unspecified abnormal findings in urine (principal) | CPT/HCPCS: 81002; 87086; G0463 ==

== ENCOUNTER → 2021-06-07 | Outpatient (REF) | payer MEDICARE, BC ==
[2021-06-07 16:12] LABS: BASO # 0.1 10^3/uL (0.0-0.2); BASO % 0.6 % (0.0-1.0); EOS # 0.1 10^3/uL (0.0-0.5); EOS % 1.6 % (0.0-3.0); HEMATOCRIT 37.9 % (36.0-47.0); HEMOGLOBIN 12.1 g/dl (12.0-15.5); LYMPH # 1.8 10^3/uL (1.5-5.0); LYMPH % 20.5 % (24.0-44.0); MEAN CORPUSCULAR HEMOGLOBIN 30.7 pg (27.0-33.0); MEAN CORPUSCULAR HGB CONC 31.9 g/dl (32.0-36.5); MEAN CORPUSCULAR VOLUME 96.2 fl (80.0-96.0); MONO # 0.8 10^3/uL (0.0-0.8); MONO % 9.3 % (2.0-8.0); NEUTROPHILS # 5.8 10^3/uL (1.5-8.5); NEUTROPHILS % 67.5 % (36.0-66.0); PLATELET COUNT, AUTOMATED 345 10^3/uL (150-450); RED BLOOD COUNT 3.94 10^6/uL (4.00-5.40); WHITE BLOOD COUNT 8.6 10^3/uL (4.0-10.0)
[2021-06-07 16:26] LABS: HEMOGLOBIN A1c 5.5 %
[2021-06-07 16:47] LABS: ALBUMIN 3.7 GM/DL (3.2-5.2); ALT/SGPT 22 U/L (12-78); BILIRUBIN,TOTAL 0.3 MG/DL (0.2-1.0); BLOOD UREA NITROGEN 17 MG/DL (7-18); CALCIUM LEVEL 9.9 MG/DL (8.8-10.2); CARBON DIOXIDE LEVEL 38 MEQ/L (21-32); CHLORIDE LEVEL 101 MEQ/L (98-107); CHOLESTEROL LEVEL 254 MG/DL (<200); CHOLESTEROL RISK RATIO 4.792 (<5); CREATININE FOR GFR 0.63 MG/DL (0.55-1.30); GLOMERULAR FILTRATION RATE > 60.0 (>39); GLUCOSE, FASTING 91 MG/DL (70-100); HDL CHOLESTEROL 53 MG/DL (>40); LDL CHOLESTEROL 167 MG/DL (<100); NON-HDL-C 201 MG/DL; POTASSIUM SERUM 4.6 MEQ/L (3.5-5.1); SODIUM LEVEL 141 MEQ/L (136-145); TOTAL PROTEIN 6.8 GM/DL (6.4-8.2); TRIGLYCERIDES LEVEL 171 MG/DL (<150)
[2021-06-07 16:50] LABS: VITAMIN B12 LEVEL 275 PG/ML (247-911)
[2021-06-08 10:52] LABS: FOLATE 11.2 NG/ML (>5.4)
== END ==
LOC: M SFHCCLAY 13:23
PROVIDERS: ATTEND Family Medicine
DX: R73.01 Impaired fasting glucose (principal); E78.5 Hyperlipidemia, unspecified; R20.0 Anesthesia of skin; R25.1 Tremor, unspecified
CPT/HCPCS: 80053; 80061; 82607; 82746; 83036; 85025; 90682; G0008; G0463

== ENCOUNTER → 2022-04-23 | Outpatient (REF) | payer MEDICARE, BC ==
[~2022-04-23] MED LIST changes: +ALBU2.5V10 INH; -ALBU83IN INH
== END ==
LOC: M SFHCCAPE 11:15
PROVIDERS: ATTEND Physician Assistant
DX: R30.0 Dysuria (principal)

== ENCOUNTER → 2022-06-13 | Outpatient (REF) | payer MEDICARE, BC ==
[2022-06-13 18:15] LABS: ALBUMIN 3.8 GM/DL (3.2-5.2); ALKALINE PHOSPHATASE 74 U/L (45-117); ALT/SGPT 21 U/L (12-78); AST/SGOT 12 U/L (7-37); BILIRUBIN,TOTAL 0.2 MG/DL (0.2-1.0); BLOOD UREA NITROGEN 18 MG/DL (7-18); CALCIUM LEVEL 9.7 MG/DL (8.8-10.2); CARBON DIOXIDE LEVEL 35 MEQ/L (21-32); CHLORIDE LEVEL 99 MEQ/L (98-107); CHOLESTEROL LEVEL 245 MG/DL (<200); CHOLESTEROL RISK RATIO 4.454 (<5); CREATININE FOR GFR 0.63 MG/DL (0.55-1.30); GLOMERULAR FILTRATION RATE > 60.0 (>39); GLUCOSE, FASTING 94 MG/DL (70-100); HDL CHOLESTEROL 55 MG/DL (>40); LDL CHOLESTEROL 153 MG/DL (<100); MAGNESIUM LEVEL 1.9 MG/DL (1.8-2.4); NON-HDL-C 190 MG/DL; POTASSIUM SERUM 4.5 MEQ/L (3.5-5.1); SODIUM LEVEL 138 MEQ/L (136-145); TOTAL PROTEIN 7.1 GM/DL (6.4-8.2); TRIGLYCERIDES LEVEL 183 MG/DL (<150)
[2022-06-13 19:43] LABS: HEMOGLOBIN A1c 5.5 %
== END ==
LOC: M SFHCCLAY 13:37
PROVIDERS: ATTEND Family Medicine
DX: R73.01 Impaired fasting glucose (principal); E78.5 Hyperlipidemia, unspecified; K21.9 Gastro-esophageal reflux disease without esophagitis

== ENCOUNTER → 2022-12-12 | Outpatient (REF) | payer MEDICARE, BC ==
[2022-12-12 17:22] LABS: HEMATOCRIT 37.6 % (36.0-47.0); HEMOGLOBIN 11.7 g/dl (12.0-15.5); MEAN CORPUSCULAR HGB CONC 31.1 g/dl (32.0-36.5); MEAN CORPUSCULAR VOLUME 99.5 fl (80.0-96.0); PLATELET COUNT, AUTOMATED 368 10^3/uL (150-450); RED BLOOD COUNT 3.78 10^6/uL (4.00-5.40); WHITE BLOOD COUNT 9.2 10^3/uL (4.0-10.0)
[2022-12-12 17:48] LABS: IRON (FE) 53 UG/DL (50-170)
[2022-12-12 17:49] LABS: ALBUMIN 3.7 G/DL (3.2-5.2); ALKALINE PHOSPHATASE 72 U/L (46-116); ALT/SGPT 16 U/L (7.0-40); AST/SGOT 17 U/L (<34); BILIRUBIN,TOTAL 0.2 MG/DL (0.3-1.2); BLOOD UREA NITROGEN 18 MG/DL (9-23); CALCIUM LEVEL 9.7 MG/DL (8.3-10.6); CARBON DIOXIDE LEVEL 37 MMOL/L (20-31); CHLORIDE LEVEL 98 MMOL/L (98-107); FREE T4 0.84 NG/DL (0.89-1.76); GLOMERULAR FILTRATION RATE > 60.0 (>39); GLUCOSE, FASTING 88 MG/DL (74-106); POTASSIUM SERUM 4.4 MMOL/L (3.5-5.1); SODIUM LEVEL 136 MMOL/L (136-145); TOTAL PROTEIN 6.8 G/DL (5.7-8.2)
[2022-12-12 17:50] LABS: THYROID STIMULATING HORMONE 0.777 uIU/ML (0.55-4.78)
== END ==
LOC: M SFHCCLAY 13:43
PROVIDERS: ATTEND Family Medicine
DX: R63.4 Abnormal weight loss (principal); D64.9 Anemia, unspecified